=== PATIENT | female | born 1955 | race Caucasian/White ===

== ENCOUNTER 2017-07-13 00:48 | Emergency (ER) | payer OTHER ==
[~2017-07-13] VITALS: Ht 165.1 cm; Wt 79.9 kg
[~2017-07-13 00:48] MED LIST: 2 INHALERS; ALPRAZOLAM0.5 MG PO; AMITRIPTYLINE H50 MG PO; BENTYL20 MG PO; CLEOCIN300 MG PO; CLINDAMYCIN HC300 MG PO; COLACE100 MG PO; DIAZEPAM10 MG PO; DILAUDID2 MG PO; ELAVIL25 MG PO; ELAVIL50 MG PO; GABAPENTIN400 MG PO; IBUPROFEN800 MG PO; KEFLEX500 MG PO; MOTRIN800 MG PO; MULTIPLE VITAM1 EAC1 PO; NEURONTIN400 MG PO; OMEPRAZOLE10 M1 PO; PRAVACHOL10 MG PO; PREDNISONE5 MG PO; PRILOSEC20 MG PO; PROBIOTIC1 EAC1 PO; PROMETHAZINE HC25 M1 PO; QUETIAPINE FUM300 MG PO; SEROQUEL100 MG PO; SEROQUEL300 MG PO; SEROQUEL50 MG PO; TRAMADOL HCL50 MG PO; ULTRAM50 MG PO; VALIUM5 MG PO; XANAX0.5 MG PO; XANAX1 MG PO; XANAX2 MG PO; ZOFRAN4 MG PO; ZYRTEC5 MG PO
[2017-07-13 01:59] LABS: BASOPHIL (%) 0.4 % (0-1); EOSINOPHIL (%) 4.9 % (0-5); EOSINOPHIL COUNT 0.3 K/uL (0-0.3); HEMOGLOBIN 12.1 G/DL (11.9-15.5); IMMATURE GRANULOCYTE (%) 0.9 % (0.0-0.7); LYMPHOCYTE (%) 14.9 % (15-42); MCH 27.9 PG (29.0-34.0); MCHC 33.6 G/DL (30.0-36.0); MCV 83.1 FL (83-99); MONOCYTE (%) 8.3 % (3-12); MONOCYTE COUNT 0.6 K/uL (0-0.8); NEUTROPHIL (%) 70.6 % (45-76); NEUTROPHIL COUNT 4.9 K/uL (1.8-6.4); PLATELET COUNT 248 K/uL (156-360); RBC DIS.WIDTH-CV 13.4 % (11.8-14.6); RBC DIS.WIDTH-SD 40.4 % (39-53); RED BLOOD COUNT 4.33 M/uL (3.80-5.20); WHITE BLOOD COUNT 6.9 K/uL (4.1-10.2)
[2017-07-13 02:08] LABS: CHLORIDE 104 mEq/L (99-109); POTASSIUM 3.5 mEq/L (3.7-5.4); SODIUM 140 mEq/L (136-147)
[2017-07-13 02:10] LABS: GLUCOSE 135 mg/dL (70-99); TOTAL PROTEIN 6.8 g/dL (6.4-8.3)
[2017-07-13 02:12] LABS: TOTAL BILIRUBIN 0.3 mg/dL (0.0-1.0)
[2017-07-13 02:14] LABS: ALKALINE PHOSPHATASE 103 IU/L (3-129); GFR ESTIMATE (CALCULATED) > 59 mL/min/
[2017-07-13 02:15] LABS: UREA NITROGEN (BUN) 9 mg/dL (9-23)
[2017-07-13 02:16] LABS: AST (GOT) 26 IU/L (2-34)
[2017-07-13 02:17] LABS: ALT (GPT) 34 IU/L (3-49); LIPASE 46 U/L (1.0-51.0)
[2017-07-13 03:42] LABS: APPEARANCE CLOUDY ((CLEAR)); BILIRUBIN NEGATIVE; BLOOD MODERATE; COLOR YELLOW ((YELLOW)); GLUCOSE (STRIP) NEGATIVE; KETONES NEGATIVE; LEUKOCYTES LARGE; NITRITE NEGATIVE; PROTEIN (STRIP) NEGATIVE; SPECIFIC GRAVITY 1.004 (1.000-1.030); UROBILINOGEN 0.2 MG/DL (0.2-1.0)
[2017-07-13] MEDS ORDERED: PYRIDIUM100 MG PO (04:11)
[2017-07-13] MEDS ORDERED: REGLAN10 MG PO (04:11)
[2017-07-13] MEDS ORDERED: KEFLEX500 MG PO (04:11)
[2017-07-13] MEDS ORDERED: CARAFATE1 GM PO (04:11)
[2017-07-13 04:27] LABS: RED BLOOD CELLS 0-5 /HPF (0-5)
[2017-07-13 04:28] LABS: EPITHELIAL CELLS 1+ /HPF; MUCUS NONE SEEN /LPF; UCUL ADDED? YES; WHITE BLOOD CELLS 20-30 /HPF (0-5)
[2017-07-13 04:29] LABS: BACTERIA 3+ /HPF
[2017-07-13 04:51] VITALS: BP 105/71
== END 2017-07-13 04:52 | disposition home or self-care (01) ==
LOC: EME 00:48
PROVIDERS: Emergency Medicine
DX: N39.0 Urinary tract infection, site not specified (principal); R10.9 Unspecified abdominal pain; J45.909 Unspecified asthma, uncomplicated; F41.9 Anxiety disorder, unspecified; J44.9 Chronic obstructive pulmonary disease, unspecified; K21.9 Gastro-esophageal reflux disease without esophagitis; I10 Essential (primary) hypertension; Z87.442 Personal history of urinary calculi; G43.909 Migraine, unspecified, not intractable, without status migrainosus; E78.5 Hyperlipidemia, unspecified; K58.0 Irritable bowel syndrome with diarrhea; Z88.8 Allergy status to other drugs, medicaments and biological substances; Z88.5 Allergy status to narcotic agent; Z88.6 Allergy status to analgesic agent; Z88.2 Allergy status to sulfonamides; Z91.041 Radiographic dye allergy status; Z87.891 Personal history of nicotine dependence; Z88.0 Allergy status to penicillin
CPT/HCPCS: 74176; 80053; 81003; 83690; 85025; 87086; 99281; 99285; J2765; J7030

== ENCOUNTER 2017-07-28 05:17 | Inpatient (IN) | payer OTHER ==
[~2017-07-28] VITALS: Ht 165.1 cm; Wt 75.0 kg
[~2017-07-28 05:17] MED LIST changes: +CARAFATE1 GM PO; +ELAVIL100 MG PO; -ELAVIL25 MG PO; +PYRIDIUM100 MG PO; +REGLAN10 MG PO
[2017-07-28 06:10] LABS: HEMATOCRIT 41.5 % (36.0-46.0); MCH 28.1 PG (29.0-34.0); MCHC 34.2 G/DL (30.0-36.0); MCV 82.2 FL (83-99); RBC DIS.WIDTH-SD 41.1 % (39-53); RED BLOOD COUNT 5.05 M/uL (3.80-5.20)
[2017-07-28 06:15] LABS: HEMOGLOBIN 14.2 G/DL (11.9-15.5)
[2017-07-28 07:10] LABS: ALBUMIN 4.6 G/DL (3.2-4.8); ALKALINE PHOSPHATASE 89 IU/L (3-129); ALT (GPT) 52 IU/L (3-49); AST (GOT) 51 IU/L (2-34); CHLORIDE 102 MEQ/L (99-109); GFR ESTIMATE (CALCULATED) > 59 mL/min/; GLUCOSE 87 mg/dL (70-99); LIPASE 15 U/L (1.0-51.0); POTASSIUM 3.8 MEQ/L (3.7-5.4); SODIUM 141 MEQ/L (136-147); TOTAL BILIRUBIN 0.6 MG/DL (0.0-1.0); TOTAL PROTEIN 8.1 G/DL (6.4-8.3); UREA NITROGEN (BUN) 7 mg/dL (9-23)
[2017-07-28 07:30] LABS: APPEARANCE CLEAR ((CLEAR)); BILIRUBIN NEGATIVE; BLOOD NEGATIVE; COLOR STRAW ((YELLOW)); GLUCOSE (STRIP) NEGATIVE; KETONES NEGATIVE; LEUKOCYTES MODERATE; NITRITE NEGATIVE; PROTEIN (STRIP) NEGATIVE; SPECIFIC GRAVITY 1.003 (1.000-1.030); UROBILINOGEN 0.2 MG/DL (0.2-1.0)
[2017-07-28 07:38] LABS: PLAT.SUFFICIENCY ADEQUATE; PLATELET COUNT 209 K/uL (156-360)
[2017-07-28 07:51] LABS: BACTERIA RARE /HPF; EPITHELIAL CELLS RARE /HPF; MUCUS NONE SEEN /LPF; RED BLOOD CELLS 0-5 /HPF (0-5); UCUL ADDED? YES
[2017-07-28] MEDS ORDERED: NEURONTIN400 MG PO (10:30)
[2017-07-28 15:05] VITALS: BP 188/90
[2017-07-28 19:45] VITALS: BP 144/84
[2017-07-29 07:16] VITALS: BP 144/78
[2017-07-29 07:33] LABS: CHLORIDE 110 MEQ/L (99-109); CREATININE 0.8 MG/DL (0.6-1.3); GFR ESTIMATE (CALCULATED) > 59 mL/min/; GLUCOSE 88 mg/dL (70-99); SODIUM 142 MEQ/L (136-147); UREA NITROGEN (BUN) 6 mg/dL (9-23)
[2017-07-29 09:09] LABS: HEMATOCRIT 38.7 % (36.0-46.0); HEMOGLOBIN 12.4 G/DL (11.9-15.5); MCH 27.3 PG (29.0-34.0); MCV 85.1 FL (83-99); PLATELET COUNT 161 K/uL (156-360); RBC DIS.WIDTH-CV 13.9 % (11.8-14.6); RBC DIS.WIDTH-SD 42.8 % (39-53); RED BLOOD COUNT 4.55 M/uL (3.80-5.20); WHITE BLOOD COUNT 5.4 K/uL (4.1-10.2)
[2017-07-29 11:27] VITALS: BP 164/94
[2017-07-29 15:03] VITALS: BP 158/88
[2017-07-29 19:30] VITALS: BP 158/82
[2017-07-30 00:37] VITALS: BP 128/69
[2017-07-30 07:39] VITALS: BP 138/88
[2017-07-30 13:29] VITALS: BP 163/90
[2017-07-30 16:17] VITALS: BP 171/87
[2017-07-30 17:05] LABS: C DIFF TOXIN NEGATIVE (NEGATIVE)
[2017-07-30 21:00] VITALS: BP 125/78
[2017-07-30 23:29] VITALS: BP 118/68
[2017-07-31 04:00] VITALS: BP 120/74
[2017-07-31 09:00] VITALS: BP 150/87
[2017-07-31] MEDS ORDERED: AMLODIPINE BESY10 MG PO (12:02)
[2017-07-31] MEDS ORDERED: FLAGYL500 MG PO (12:02)
[2017-07-31 12:41] VITALS: BP 147/78
== END 2017-07-31 13:57 | disposition home or self-care (01) | DRG 690 ==
LOC: EME → EDBD 05:17 → EME 05:17 → 4SOUTH 12:47 → EDOF 12:47 → ENRESERV 12:49 → EDOF 13:25 → 5WEST 14:56 → ENRESERV 07-29 07:27 → 4SOUTH 07-29 07:45
PROVIDERS: Emergency Medicine; Internal Medicine; Nurse Practitioner Adult Health
DX: N39.0 Urinary tract infection, site not specified (principal); E86.0 Dehydration; R11.10 Vomiting, unspecified; R19.7 Diarrhea, unspecified; R53.1 Weakness; I10 Essential (primary) hypertension; E78.5 Hyperlipidemia, unspecified; K51.90 Ulcerative colitis, unspecified, without complications; J43.9 Emphysema, unspecified; K21.9 Gastro-esophageal reflux disease without esophagitis; J32.9 Chronic sinusitis, unspecified; I25.10 Atherosclerotic heart disease of native coronary artery without angina pectoris; F41.9 Anxiety disorder, unspecified; G43.909 Migraine, unspecified, not intractable, without status migrainosus; Z90.710 Acquired absence of both cervix and uterus; Z90.49 Acquired absence of other specified parts of digestive tract; Z87.442 Personal history of urinary calculi; Z87.440 Personal history of urinary (tract) infections; Z87.891 Personal history of nicotine dependence; Z79.899 Other long term (current) drug therapy
CPT/HCPCS: 70450; 80048; 80053; 81003; 83630; 83690; 85027; 87086; 87493; 87506; 99281; 99285; C1753; G0378; G8978 GP CH; G8979 GP CH; G8980 GP CH; G8987 GO CH; G8988 GO CH; G8989 GO CH; J0696; J2765; J7030; Q0164

== ENCOUNTER 2017-10-27 16:32 | Emergency (ER) | payer OTHER ==
[~2017-10-27] VITALS: Ht 165.1 cm; Wt 70.5 kg
[~2017-10-27 16:32] MED LIST changes: +AMLODIPINE BESY10 MG PO; +FLAGYL500 MG PO
[2017-10-27 17:52] LABS: APPEARANCE CLEAR ((CLEAR)); BILIRUBIN NEGATIVE; BLOOD NEGATIVE; COLOR AMBER ((YELLOW)); GLUCOSE (STRIP) NEGATIVE; KETONES NEGATIVE; LEUKOCYTES TRACE; NITRITE POSITIVE; PROTEIN (STRIP) NEGATIVE; SPECIFIC GRAVITY 1.004 (1.000-1.030); UROBILINOGEN 0.2 MG/DL (0.2-1.0)
[2017-10-27 17:56] LABS: BACTERIA NONE SEEN /HPF; EPITHELIAL CELLS RARE /HPF; MUCUS NONE SEEN /LPF; RED BLOOD CELLS 0-5 /HPF (0-5); UCUL ADDED? NO; WHITE BLOOD CELLS 0-5 /HPF (0-5)
[2017-10-27 18:06] LABS: HEMATOCRIT 33.3 % (36.0-46.0); HEMOGLOBIN 11.5 G/DL (11.9-15.5); MCH 28.6 PG (29.0-34.0); MCHC 34.5 G/DL (30.0-36.0); MCV 82.8 FL (83-99); PLATELET COUNT 269 K/uL (156-360); RBC DIS.WIDTH-CV 13.4 % (11.8-14.6); RBC DIS.WIDTH-SD 40.8 % (39-53); RED BLOOD COUNT 4.02 M/uL (3.80-5.20)
[2017-10-27 18:14] LABS: CHLORIDE 103 mEq/L (99-109); POTASSIUM 3.7 mEq/L (3.7-5.4); SODIUM 137 mEq/L (136-147)
[2017-10-27 18:15] LABS: GLUCOSE 106 mg/dL (70-99)
[2017-10-27 18:19] LABS: CREATININE 0.9 mg/dL (0.6-1.3); GFR ESTIMATE (CALCULATED) > 59 mL/min/
[2017-10-27 18:20] LABS: UREA NITROGEN (BUN) 8 mg/dL (9-23)
[2017-10-27] MEDS ORDERED: CIPRO500 MG PO (20:55)
[2017-10-27] MEDS ORDERED: PYRIDIUM200 MG PO (20:56)
[2017-10-27] MEDS ORDERED: KEFLEX500 MG PO (21:31)
[2017-10-27 21:39] VITALS: BP 149/98
== END 2017-10-27 21:40 | disposition home or self-care (01) ==
LOC: EME 16:32
PROVIDERS: Emergency Medicine
DX: N39.0 Urinary tract infection, site not specified (principal); I10 Essential (primary) hypertension; E78.5 Hyperlipidemia, unspecified; J44.9 Chronic obstructive pulmonary disease, unspecified; K21.9 Gastro-esophageal reflux disease without esophagitis; K58.9 Irritable bowel syndrome, unspecified; Z87.442 Personal history of urinary calculi; Z87.891 Personal history of nicotine dependence
CPT/HCPCS: 80048; 81003; 85027; 99281; 99284